=== PATIENT | female | born 1965 | race Caucasian/White ===

== ENCOUNTER 2016-12-22 03:54 | Inpatient (IN) ==
[2016-12-22] MEDS ORDERED: SOLU-MEDROL IV ONE (04:23)
[2016-12-22] MEDS ORDERED: DUONEB (A & A) INH ONE (04:23)
[2016-12-22 04:24] LABS: MANUAL DIFF NEEDED? NO
[2016-12-22 04:27] LABS: BASO% 0.2 % (0.0-0.8); EOS# 0.15 X1000 (0.0-0.7); EOS% 1.8 % (0.0-10.0); HEMATOCRIT 34.9 % (37.0-47.0); HEMOGLOBIN 11.2 g/dL (12.0-16.0); IMM GRAN# 0.02 X1000 (0.0-0.04); IMM GRAN% 0.2 % (0.0-0.5); LYMPH# 2.36 X1000 (1.2-3.4); LYMPH% 27.9 % (20.5-51.1); MCH 27.9 PG (27-31); MCHC 32.1 g/dL (33-37); MONO% 8.3 % (1.7-9.3); MPV 9.3 FL (7.4-10.4); NEUT% 61.6 % (42.2-75.2); PLT 258 X1000 (130-400); RBC 4.01 XMIL (4.2-5.4)
--- NOTE | 2016-12-22 04:31 | PROVIDER DOCUMENTATION ---
HPI-Critical Care - General Chief Complaint: Shortness of Breath Stated Complaint: sob Time Seen by Provider: 12/22/16 04:22 Patient arrived via EMS?: Yes Source: patient, EMS Unable to obtain history due to:: urgency Allergies/Adverse Reactions: Allergies Allergy/AdvReac Type Severity Reaction Status Date / Time levofloxacin [From Levaquin] Allergy Mild SHORTNESS Verified 11/24/16 20:58 OF BREATH ciprofloxacin AdvReac Mild VOMITING Verified 11/24/16 20:58 erythromycin base AdvReac Mild VOMITING Verified 11/24/16 20:58 [Erythromycin Base] azithromycin [From Zithromax] AdvReac ITCHING Verified 11/24/16 20:58 Home Medications: Home Medication List Medication Instructions Recorded Confirmed Last Taken Type ATORVAstatin [Lipitor] 10 mg PO DAILY #0 tablet 07/14/15 12/22/16 12/21/16 20: 00 Rx Albuterol 2.5MG/Ipratrop 0.5MG 3 ml INH RTQ4H #0 neb 07/14/15 12/22/16 12/22/16 00:00 Rx [Duoneb (A & A)] Citalopram [Celexa] 10 mg PO DAILY #0 tablet 07/14/15 12/22/16 12/21/16 07:00 Rx Albuterol Sulfate Inhaler 2 puff INH Q6H PRN PRN 08/29/15 12/22/16 12/22/16 02: 00 History [Ventolin Hfa] Fluticasone/Salmeterol [Advair 1 cap INH BID 08/29/15 12/22/16 12/21/16 07:00 History 500-50 Diskus] LISINOpril [Prinivil] 10 mg PO DAILY 08/29/15 12/22/16 12/21/16 07:00 History Pantoprazole [Protonix] 40 mg PO DAILY@0700 08/29/15 12/22/16 12/21/16 07:00 History Lactobacillus Rhamnosus GG 1 each PO BID #30 capsule 09/21/15 12/22/16 12/21/16 20:00 Rx [Culturelle] Metronidazole [Flagyl] 500 mg PO TID #21 tablet 11/24/16 12/22/16 Unknown Rx Prednisone [Prednisone] 10 mg PO DAILY 06/10/0512/22/16 12/19/16 07:00 History - History of Present Illness-Critical Care Nature of Presenting Problem: 51 year old copd presents complaining of productive cough of yellow phlegm, for the last 2 days Says she's had to bump up her oxygen over the last two days but it didn't help. Location of Pain/Injury: reports: none Quality of Pain: reports: none Onset/Duration: reports: 2 days ago Timing: reports: still present EMS Initial Findings:: decreased respirations, dyspneic Pre-hospital Treatment: Initiated BVM Associated Symptoms: reports: shortness of breath Loss of Consciousness: no loss of consciousness Improves Condition (Modifying Factors): improves with: nothing Nitro Today/Relief: no nitro taken today Aspirin Treatment Today: no aspirin today Prior Chest Pain/Cardiac Workup: reports: no prior chest pain Similar Symptoms Previously?: No Recently Seen Here or By Another Healthcare Provider: No - Cardiopulmonary Resuscitation Witnessed arrest?: No Bystander CPR?: No CPR initiated before doctor arrival?: No Treatment initiated prior to doctor arrival?: Initiated oxygen Review of Systems - Adult - REVIEW OF SYSTEMS - ADULT Constitutional: reports: no symptoms reported Eyes: reports: no symptoms reported Ears, Nose, Mouth & Throat: reports: no symptoms reported Cardiovascular: reports: no symptoms reported Respiratory: reports: chronic cough, cough, dyspnea on exertion, excessive sputum production, shortness of breath, wheezing Gastrointestinal: reports: no symptoms reported Genitourinary: reports: no symptoms reported Musculoskeletal: reports: no symptoms reported Integumentary: reports: no symptoms reported Neurological: reports: no symptoms reported Psychiatric: reports: no symptoms reported Endocrine: reports: no symptoms reported Hematologic/Lymphatic: reports: no symptoms reported Allergic/Immunologic: reports: no symptoms reported All Other Systems: Reviewed and Negative Past History - Adult - PAST MEDICAL HISTORY-ADULT Review of Records: reports: Old Records Reviewed, Nursing Assessment Review, Medications Reviewed, Social history reviewed & non-contributory. Major Childhood Illnesses: reports: denies history Cardiovascular: reports: HTN, other (pulmonary edema) Respiratory: reports: asthma, COPD Gastrointestinal: reports: cancer (prior to hysterectomy) Obstetrical/Gynecological: reports: denies history Genitourinary: reports: denies history Musculoskeletal: reports: denies history Neurological: reports: denies history Psychiatric: reports: anxiety, other (Panic attacks) Endocrine/Immune: reports: Diabetes Other Conditions: reports: denies history - PRIOR SURGERIES/PROCEDURES Surgical/Procedure History: reports: hysterectomy, - PRIOR HOSPITALIZATIONS Prior Hospitalizations: reports: none - IMMUNIZATION STATUS Childhood Immunizations: See Nurse Assessment Flu Vaccine: See Nurse Assessment - FAMILY HISTORY Family History: reviewed, not pertinent Physical Exam-General - PHYSICAL EXAM-ADULT Initial Vital Signs Reviewed: Yes - CONSTITUTIONAL General Appearance: appears well, mild distress - EYES Eyes: PERRL/EOMI, pink conjunctivae - HEAD, EARS, NOSE, MOUTH & THROAT HENMT: normocephalic/atraumatic, moist mucous membranes, normal ENT inspection - NECK Neck: non-tender, full range of motion - RESPIRATORY Respiratory: chest non-tender, lungs clear, normal breath sounds - CARDIOVASCULAR Cardiovascular: normal peripheral pulses, regular rate, rhythm, no edema - GASTROINTESTINAL (ABDOMEN) Abdominal Exam: normal bowel sounds, non tender, soft - LYMPHATIC Lymphatic: no adenopathy - MUSCULOSKELETAL Back Exam: normal inspection, no CVA tenderness, no vertebral tenderness Extremity: normal range of motion, non-tender, normal gait - SKIN Integumentary: normal color, normal turgor - NEUROLOGIC Neurologic: hide salter II-XII nml as tested, grossly normal, no motor/sensory deficits - PSYCHIATRIC Psych/Mental Status: normal mood/affect, normal thought content, normal thought process Progress - PLAN OF CARE/RESULTS Progress/Plan/Lab Results: Vital Signs - 8 hr 12/22/16 04:00 12/22/16 04:44 Temperature 98.3 F Pulse Rate 96 H 100 H Respiratory Rate 26 H 20 Blood Pressure 155/110 O2 Sat by Pulse Oximetry 100 100 Laboratory Results - last 24 hr 12/22/16 12/22/16 12/22/16 03:50 03:50 03:50 WBC 8.47 RBC 4.01 L Hgb 11.2 L Hct 34.9 L MCV 87.0 MCH 27.9 MCHC 32.1 L RDW Std Deviation 12.8 Plt Count 258 MPV 9.3 Immature Gran % (Auto) 0.2 Neut % (Auto) 61.6 Lymph % (Auto) 27.9 Humphreys % (Auto) 8.3 Eos % (Auto) 1.8 Baso % (Auto) 0.2 Immature Gran # (Auto) 0.02 Neut # (Auto) 5.22 Lymph # (Auto) 2.36 Humphreys # (Auto) 0.70 H Eos # (Auto) 0.15 Baso # (Auto) 0.02 PT 10.0 INR 0.96 PTT (Actin FS) 31.2 Specimen Type Sample Site pH pCO2 pO2 HCO3 Base Excess Oxyhemoglobin ABG O2 Sat (Calculated) ABG O2 Saturation ABG Carboxyhemoglobin ABG Methemoglobin Yves Test A-a O2 Difference Total Hemoglobin Lactate Liter Flow Blood Gas Modality FiO2 % Sodium 144 Potassium 3.9 Chloride 101 Carbon Dioxide 33 Anion Gap 10 BUN 9 Creatinine 0.5 Estimated GFR/1.73 m2 > 60 BUN/Creatinine Ratio 18 Glucose 97 Calculated Osmolality 285 Calcium 9.0 Magnesium 2.1 Total Bilirubin 0.20 AST 14 ALT 15 Alkaline Phosphatase 59 Creatine Kinase 61 Troponin T Total Protein 7.1 Albumin 4.2 Globulin 2.9 Albumin/Globulin Ratio 1.4 12/22/16 12/22/16 03:50 04:30 WBC RBC Hgb Hct MCV MCH MCHC RDW Std Deviation Plt Count MPV Immature Gran % (Auto) Neut % (Auto) Lymph % (Auto) Humphreys % (Auto) Eos % (Auto) Baso % (Auto) Immature Gran # (Auto) Neut # (Auto) Lymph # (Auto) Humphreys # (Auto) Eos # (Auto) Baso # (Auto) PT INR PTT (Actin FS) Specimen Type ARTERIAL Sample Site R RADIAL pH 7.37 pCO2 62 H* pO2 127 H HCO3 31.7 H Base Excess 8.7 H Oxyhemoglobin 96.9 ABG O2 Sat (Calculated) 15.2 ABG O2 Saturation 98.7 ABG Carboxyhemoglobin 1.00 ABG Methemoglobin 0.8 Yves Test YES A-a O2 Difference 52.0 Total Hemoglobin 11.0 L Lactate 0.70 Liter Flow 4.0 Blood Gas Modality CANNULA FiO2 % 36.0 Sodium Potassium Chloride Carbon Dioxide Anion Gap BUN Creatinine Estimated GFR/1.73 m2 BUN/Creatinine Ratio Glucose Calculated Osmolality Calcium Magnesium Total Bilirubin AST ALT Alkaline Phosphatase Creatine Kinase Troponin T < 0.010 Total Protein Albumin Globulin Albumin/Globulin Ratio Orders Category Date Time Status Cardiac Monitoring DIRECTED Care 12/22/16 03:55 Active Oxygen Therapy- ED Nursing DIRECTED Care 12/22/16 03:55 Active Saline Loc NOW Care 12/22/16 03:55 Active CHEST-2 VIEWS [RAD] Stat Exams 12/22/16 03:55 Taken ABG [RESP] Routine Lab 12/22/16 04:30 Completed CBC WITH ELECTRONIC DIFF [HEME] Stat Lab 12/22/16 03:50 Completed CK PROFILE [SP CHEM] Stat Lab 12/22/16 03:50 Completed COMPREHENSIVE METABOLIC PANEL [CHEM] Stat Lab 12/22/16 03:50 Completed MAGNESIUM [CHEM] Stat Lab 12/22/16 03:50 Completed PRO B-NATRIURETIC PEPTIDE Stat Lab 12/22/16 03:50 Received PROTIME WITH INR [COAG] Stat Lab 12/22/16 03:50 Completed PTT [COAG] Stat Lab 12/22/16 03:50 Completed TROPONIN T Stat Lab 12/22/16 03:50 Completed Albuterol 2.5MG/Ipratrop 0.5MG [Duoneb (A & A)] Med 12/22/16 04:23 Discontinued 3 ml INH NOW ONE Methylprednisolone Sod Succ [Solu-Medrol] Med 12/22/16 04:23 Discontinued 125 mg IV NOW ONE Aerosol Treatments Routine Oth 12/22/16 04:23 Completed Aerosol Treatments Stat Oth 12/22/16 04:23 Completed EKG [EKG] Stat Ther 12/22/16 03:54 Ordered Transfer/Admit Order [TRANSFER] Routine Transfer 12/22/16 04:46 Ordered Result Diagrams: 12/22/16 03:50 12/22/16 03:50 Departure - Departure Date of Disposition Decision: 12/22/16 Time of Disposition Decision: 04:31 DIAGNOSIS: COPD exacerbation, SOB (shortness of breath) Disposition: ADMITTED INPATIENT 09 Certified Medical Emergency: Emergent Condition: Stable - Critical Care Note This patient required my direct & personal management of CC.: No Attestation - Physician/ AMINA Attestation The physician spent face to face time with patient:: Yes Advanced Practice Provider documentation review:: The physician spent face to face time with this patient and agrees with all MLP documentation, treatment, and medical decision making by the MLP. See provider notes for further information.
[2016-12-22 04:36] LABS: INR 0.96; PTT 31.2 Seconds (22.0-36.0)
[2016-12-22 04:38] LABS: ALLEN TEST YES; BE 8.7 mmoll (-3.0-3.0); BLOOD TYPE ARTERIAL; DRAW SITE R RADIAL; METHB 0.8 % (0.0-1.5); O2(CT) 15.2 mL/dL (15.0-23.0); PO2(98.6) 127 mmHg (60-100); SAMPLE BLOOD; SAO2 98.7 % (95.0-100.0); pH(98.6) 7.37 (7.35-7.45)
[2016-12-22 04:40] LABS: MODALITY CANNULA
[2016-12-22 04:41] LABS: PCO2(98.6) 62 mmHg (35-45)
[2016-12-22 04:44] LABS: AGAP 10; ALBUMIN 4.2 g/dL (3.5-5.0); ALKALINE PHOSPHATASE 59 U/L (32-104); BUN 9 mg/dL (8-22); CHLORIDE 101 mmol/L (98-107); CK PROFILE 61 U/L (24-173); COSMO 285; GOT 14 U/L (10-30); GPT 15 U/L (10-36); MAGNESIUM 2.1 mg/dL (1.5-2.7); POTASSIUM 3.9 mmol/L (3.5-5.1); SODIUM 144 mmol/L (136-145); TCO2 33 mmol/L (25-35); TOTAL PROTEIN 7.1 g/dL (6.3-8.3)
[2016-12-22] MEDS: TYLENOL PO PRN ×2 (06:55→14:57)
[2016-12-22] MEDS ORDERED: ATIVAN ONE (07:07)
[2016-12-22] MEDS ORDERED: ATIVAN IV ONE (07:11)
[2016-12-22] MEDS: ZOFRAN IV PRN ×2 (08:18→17:00)
--- NOTE | 2016-12-22 08:19 | HISTORY AND PHYSICAL ---
PRIMARY CARE PROVIDERS: ELIZABETH Weir YARN BLEACHING MACHINE OPERATOR: Jackeline Ambrocio MD CHIEF COMPLAINT: Shortness of breath. HISTORY OF PRESENT ILLNESS: Ms. Márquez is a 51-year-old, female with a past medical history of COPD with frequent exacerbations. She currently is oxygen-dependent and wears nasal cannula 2 L at home. She also uses BiPAP at night. She reports that starting yesterday that she has become more short of breath. Patient reports that she frequently becomes short of breath upon exertion, though it is much worse at this time. She also states that she attempted to bump up her oxygen in hopes that this would help her feel better, though she continued to feel worse. The patient also reports a productive cough with yellow sputum. She denies any fever, body aches, or chills. She reports that she takes prednisone 10 mg daily, though has been out of this for approximately 4 days. She reports that her most recent admission was in [facility] in [place], for which she had a pretty severe COPD exacerbation and did end up having to be placed on a ventilator due to respiratory failure and hypercapnia. She states that she does have chronic hypercapnia, though her normal range he is in the high 50s. She denies any dizziness, chest pain, nausea, vomiting, or constipation. The patient does report some left upper quadrant pain that has been ongoing for approximately 3 months as well as diarrhea. She reports that her diarrhea of loose consistency and is light brown in color and has had a bloody mucus-like appearance at times. She reports that she can have up to 4-5 loose stools a day. She has history of irritable bowel syndrome and diverticulitis and did report a recent history of taking Flagyl for an intestinal infection. Upon evaluation in the ER, patient did appear to be slightly dyspneic. She was able to speak in full sentences. Though her lung sounds were diminished bilaterally in full brown. At this time, she is requiring increased oxygen dependent on 4 L nasal cannula at this time and is maintaining adequate oxygen saturations at 100%. Her chest x-ray does show findings consistent with COPD disease, though no other acute abnormalities are noted at this time, though we are awaiting official radiology over-read. Arterial blood gases showed a normal pH of 7.37, though pCO2 was elevated at 62. PO2 127, and HCO3 was 31.6. Patient was given a DuoNeb treatment as well as Solu- Medrol 125 mg IV in the ER and states that she does feel better since receiving these medications. At this time, we will admit the patient for further treatment and evaluation of her COPD exacerbation and diarrhea as well. REVIEW OF SYSTEMS: A 12-point review of systems was conducted with the patient and all were negative except for pertinent positives mentioned above in the HPI. PAST MEDICAL HISTORY: 1. COPD. 2. Hypertension. 3. Hyperlipidemia. 4. Gastroesophageal reflux disease. 5. Irritable bowel syndrome. 6. Diverticulitis. PAST SURGICAL HISTORY: 1. . 2. Hysterectomy secondary to patient reported findings of precancerous cells. SOCIAL HISTORY: Patient currently lives here in [place] with family, though within the last year, has recently moved back from around the [facility]. She is a former smoker. She has a history of smoking 1-1/2 packs per day for 15 years and quit approximately 1 year ago. She denies any alcohol or illicit drug use. FAMILY HISTORY: Positive for her mother having a history of glaucoma and gastroesophageal reflux disease. She reports that her father has no known medical problems. She also has 2 brothers and 2 sisters who are healthy as well. ALLERGIES: Patient reports allergies to Levaquin, Levsin, ciprofloxacin, erythromycin and Zithromax. HOME MEDICATIONS: 1. lorazepam 0.5 mg p.o. b.i.d. 2. Vitamin B12 1000 mcg p.o. daily. 3. Vitamin D3 1000 units p.o. daily. 4. Mucinex extended release 600 mg p.o. b.i.d. 5. Daliresp 500 mcg p.o. daily. 6. Zofran ODT mg p.o. p.r.n. as needed for nausea. 7. Trazodone 50 mg p.o. at bedtime. 8. Symbicort 160-4.5 mcg inhaler 1 puff inhaled twice a day. 9. Prednisone 10 mg p.o. daily. 10. Protonix 40 mg p.o. daily. 11. Culturelle 1 capsule p.o. b.i.d. 12. Advair 500-50 Diskus 1 capsule inhaled b.i.d. 13. Celexa 10 mg p.o. daily. 14. Ventolin HFA inhaler 2 puffs inhaled q.4 hours p.r.n. 15. DuoNeb albuterol/Atrovent treatments 3 mL inhaled q.4 hours. 16. Lipitor 10 mg p.o. daily. DIAGNOSTIC DATA/LABORATORY RESULTS: White blood cell count 8.47, hemoglobin 11.2, hematocrit 34.9, platelet count 258,000. PTT 10, INR 0.96, PTT 31.2. Sodium 144, potassium 3.9, chloride 101, bicarb 33, BUN 9, creatinine 0.5, glucose 97, calcium 9, magnesium 2.1. Liver function tests within normal limits. CK 61, troponin less than 0.01. Arterial blood gases were obtained on nasal cannula at 4 L. PH was 7.37, pCO2 62, PO2 127, HCO3 was 31.7 with a base excess of 8.7, and O2 saturation of 98.7. EKGs shows normal sinus rhythm at a rate of 100 with a QTc of 466. Chest x-ray showed findings of COPD disease though no other acute abnormalities noted at this time. We are awaiting official radiology over read. PHYSICAL EXAMINATION: VITAL SIGNS: Temperature 98.3 degrees, heart rate 81, respirations 25, blood pressure 132/80, oxygen saturation 100% nasal cannula at 4 L. GENERAL: Ms. Márquez is a pleasant 51-year-old, female who is resting comfortably in the ER stretcher. She was in no acute distress. She was awake, alert and able answer all questions appropriately. HEENT: Head is atraumatic, normocephalic. Pupils are equal, round, reactive to light, were 3 mm bilaterally and brisk. The subconjunctivae are pink. Oral mucosa is moist. Oropharynx is clear. NECK: Supple. Trachea midline. The patient does report approximately a half- dollar sized area noted to her posterior left neck that is slightly swollen. She reports that this came up a month or 2 ago. It is nontender upon palpation. She has no other lymphadenopathy noted. CARDIOVASCULAR: Patient has normal S1, S2. No murmurs, gallops, or rubs appreciated with a regular rate and rhythm. PULMONARY: Patient has symmetrical chest expansion bilaterally. Lung sounds in bilateral lung brown were diminished. ABDOMEN: Soft, nondistended. The patient did report some tenderness in the left upper quadrant upon palpation though no rebound tenderness noted. Bowel sounds were present in all 4 quadrants and were slightly hypoactive. EXTREMITIES: No cyanosis, clubbing, or edema noted. Pulse, motor and sensory were intact in all extremities as well. Pedal pulses were 3+ bilaterally. Capillary refill less than 3. INTEGUMENTARY: The patient's skin is pink, warm, dry and intact. No lesions or sores noted. NEUROLOGICAL: Patient is alert, oriented x4. Cranial nerves 2-12 are grossly intact. ASSESSMENT AND PLAN: 1. Chronic obstructive pulmonary disease exacerbation. For this, we will place the patient on q.4 hours scheduled DuoNeb treatments as well as q.2 hour p.r.n. DuoNeb treatments as needed. We will also give her Solu-Medrol 80 mg IV q.8 hours. We will continue with aggressive pulmonary toilet with turn, cough and deep breathe as well as incentive spirometry q.4 hours. We will also continue her BiPAP daily at night and will continue to monitor her respiratory status closely. 2. Hyperlipidemia. We will continue her Lipitor. 3. Hypertension. The patient states that currently, she does not take any medications for high blood pressure, though does have a previous history of this. We will continue to monitor her blood pressure and will treat if necessary. 4. Anxiety. Will continue the patient's Ativan twice a day p.r.n. as needed. 5. Gastroesophageal reflux disease. For this, as well as gastrointestinal prophylaxis, we will place the patient on Protonix 40 mg IV q.24 hours. 6. Deep vein thrombosis prophylaxis. For this, the patient we have ordered for sequential compression devices to be placed. 7. Diarrhea. We have placed stool studies as well as a CRP and a vitamin D 25 hydroxy given her history of irritable bowel syndrome and diverticulitis. The patient does have some reported left upper quadrant pain. We have ordered an amylase and lipase as well and are awaiting those results. The patient will be placed on the medical floor telemetry. She will have vital signs q.4 hours. We will do intake and output q.8 hours. She will be on a regular diet. Further orders and recommendations pending hospital course, diagnostic studies and physician evaluation. Dictated by ELIZABETH Gomez for William Looney MD cc: William Looney MD INTERFAITH MEDICAL CENTERTheresa
[2016-12-22] MEDS: MOTRIN PO PRN ×3 (08:30→17:00)
[2016-12-22] MEDS: PROTONIX IV SCH (08:31)
[2016-12-22] MEDS ORDERED: LEVAQUIN 750 MG/D5W 750 MG/150 ML IVPB IV SCH (09:00)
--- NOTE | 2016-12-22 09:13 | Diag Imaging Result Doc PS360 ---
EXAM: CHEST-2 VIEWS INDICATION: CP TECHNIQUE: 2 views COMPARISON: 11/24/2016 FINDINGS: The lungs appear somewhat hyperinflated, stable. The lungs are grossly clear, otherwise. There is no discrete pleural fluid collection or pneumothorax. The cardiomediastinal silhouette and central vasculature are grossly unremarkable. IMPRESSION: Suggestion of COPD. No definite acute pathology by plain radiograph. Electronically signed by Arnold Claros 12/22/2016 9:10 AM
[2016-12-22] MEDS: DUONEB (A & A) INH SCH ×5 (09:52→22:42)
--- NOTE | 2016-12-22 11:27 | PROGRESS NOTE ---
DATE: 12/22/2016 SUBJECTIVE: The patient is feeling better but complained of having headache. Shortness of breath has been somewhat improved. No fever. No chills. No nausea, vomiting or diarrhea. No cough this morning. OBJECTIVE: Vital signs: Blood pressure is 153/82, pulse 97, respirations 16, temperature 97.8, saturation 98% on 4 L. General appearance: A thin white female in no acute distress. HEENT: Anicteric sclerae. Clear conjunctivae. Neck: Supple. No JVD. No bruit. Cardiovascular: S1, S2 normal. Regular rate and rhythm. No murmurs, rubs or gallops. Pulmonary: Decreased air movement bilaterally with expiratory wheezes. GI: Soft, nontender and nondistended. Normoactive bowel sounds. Musculoskeletal: No cyanosis, clubbing or edema. DIAGNOSTIC DATA: WBC is 8.47, hemoglobin 11.2, hematocrit 34.9, platelets 258. Chemistry shows sodium 144, potassium 3.9, chloride 101, bicarb 23, BUN is 9, creatinine 0.5, glucose 97, calcium 9.0. Liver function tests are within normal limits. ASSESSMENT AND PLAN: This is a 51-year-old white female with COPD, admitted to the hospital for acute shortness of breath and productive cough. 1. Acute chronic obstructive pulmonary disease exacerbation. We sent sputum and blood culture. We started the patient on Rocephin. Keep her on her IV steroids and nebulizer treatment as is. 2. Headache. History of migraine. The patient takes ibuprofen, and we will put the patient on ibuprofen and Tylenol alternating. 3. Gastroesophageal reflux disease. Continue Protonix. 4. Anxiety disorder. We will continue p.r.n. Ativan. 5. Hyperlipidemia. We will continue Lipitor. 6. Code status. The patient is full code. 7. DVT prophylaxis. We will put the patient on Lovenox.
[2016-12-22] MEDS: ROCEPHIN 1 GM/NS 1 GM/50 ML IVPB IV SCH (12:03)
[2016-12-22] MEDS: DALIRESP PO SCH (12:04)
[2016-12-22] MEDS: VITAMIN D PO SCH (12:04)
[2016-12-22] MEDS: CELEXA PO SCH (12:04)
[2016-12-22] MEDS: VITAMIN B-12 PO SCH (12:04)
[2016-12-22] MEDS: LOVENOX SUBQ SCH (12:04)
[2016-12-22] MEDS: CULTURELLE PO SCH ×2 (12:04→21:19)
[2016-12-22] MEDS: SOLU-MEDROL IV SCH ×2 (13:53→21:19)
[2016-12-22] MEDS: ATIVAN PO PRN ×2 (14:13→21:26)
[2016-12-22] MEDS ORDERED: ULTRAM PO ONE (20:55)
[2016-12-22] MEDS: LIPITOR PO SCH (21:19)
[2016-12-22] MEDS: DESYREL PO SCH (21:19)
[2016-12-23] MEDS: DUONEB (A & A) INH SCH ×6 (03:49→23:18)
[2016-12-23] MEDS: SOLU-MEDROL IV SCH ×3 (05:25→20:38)
[2016-12-23] MEDS: SODIUM CHLORIDE 0.9% INJ SCH (06:46)
[2016-12-23] MEDS: PROTONIX IV SCH (06:46)
[2016-12-23 06:55] LABS: HEMATOCRIT 34.4 % (37.0-47.0); HEMOGLOBIN 11.4 g/dL (12.0-16.0); LYMPH# 0.74 X1000 (1.2-3.4); LYMPH% 10.1 % (20.5-51.1); MANUAL DIFF NEEDED? YES; MCH 28.2 PG (27-31); MCHC 33.1 g/dL (33-37); MCV 85.1 FL (81-99); MONO# 0.29 X1000 (0.11-0.59); MONO% 3.9 % (1.7-9.3); MPV 8.9 FL (7.4-10.4); PLT 242 X1000 (130-400); RBC 4.04 XMIL (4.2-5.4)
[2016-12-23 07:13] LABS: AGAP 11; BUN 11 mg/dL (8-22); CALCIUM 9.2 mg/dL (8.8-10.2); CHLORIDE 99 mmol/L (98-107); COSMO 281; POTASSIUM 4.4 mmol/L (3.5-5.1); SODIUM 140 mmol/L (136-145); TCO2 30 mmol/L (25-35)
[2016-12-23 07:38] LABS: BANDS 2 % (0-1); LYMPHS 10 % (21-51); MONO 2 % (1-9)
[2016-12-23 08:53] LABS: ALLEN TEST YES; BE 5.4 mmoll (-3.0-3.0); BLOOD TYPE ARTERIAL; DRAW SITE R RADIAL; METHB 1.2 % (0.0-1.5); O2(CT) 15.2 mL/dL (15.0-23.0); PO2(98.6) 73 mmHg (60-100); SAMPLE BLOOD; SAO2 97.1 % (95.0-100.0); THB 11.3 g/dL (11.5-17.4); pH(98.6) 7.39 (7.35-7.45)
[2016-12-23 08:55] LABS: MODALITY CANNULA; PCO2(98.6) 52 mmHg (35-45)
[2016-12-23] MEDS: MOTRIN PO PRN (09:47)
[2016-12-23] MEDS: CULTURELLE PO SCH ×2 (09:47→20:38)
[2016-12-23] MEDS: VITAMIN D PO SCH (09:47)
[2016-12-23] MEDS: DALIRESP PO SCH (09:47)
[2016-12-23] MEDS: FLONASE NAS PRN (09:47)
[2016-12-23] MEDS: CELEXA PO SCH (09:47)
[2016-12-23] MEDS: ROCEPHIN 1 GM/NS 1 GM/50 ML IVPB IV SCH (09:48)
[2016-12-23] MEDS: VITAMIN B-12 PO SCH (09:48)
[2016-12-23] MEDS: LOVENOX SUBQ SCH (13:32)
[2016-12-23] MEDS: ULTRAM PO PRN ×2 (14:38→20:38)
[2016-12-23] MEDS: ZOFRAN IV PRN (14:38)
--- NOTE | 2016-12-23 15:42 | PROGRESS NOTE ---
DATE: 12/23/2016 SUBJECTIVE: The patient is feeling better. She asked when she can go home. Still having significant shortness of breath when she is talking. OBJECTIVE: Vital signs: Blood pressure 136/84, pulse of 97, respirations 20, temperature 98.6 degrees, saturation 100% on 3 L nasal cannula. The patient on 2 at home. General appearance: Thin, white female with a barrel chest and in mild distress. HEENT: Anicteric sclerae. Clear conjunctivae. Neck: Supple. No JVD. No bruit. Cardiovascular: S1, S2. Normal rate and rhythm. No murmur, rubs, or gallops. Pulmonary: She has decreased air movement bilaterally. She was wheezing expiratorily. GI: Soft, nontender, nondistended. Normoactive bowel sounds. Musculoskeletal: No clubbing, cyanosis, or edema. LABORATORY: White count 7.36, hemoglobin 11.4, hematocrit of 34.4, platelets 242,000,. Chemistry: Sodium 140, potassium 4.4, chloride 99, bicarb 30, BUN 11, creatinine 0.5, glucose of 140. ASSESSMENT AND PLAN: This is a 51-year-old, white female admitted to the hospital for acute chronic obstructive pulmonary disease exacerbation. 1. Acute chronic obstructive pulmonary disease exacerbation. We will continue ceftriaxone, nebulizer treatment, IV steroids, oxygen. We will try to titrate down to her normal dose. The patient quit smoking about a year ago. 2. Hyperlipidemia. Continue Lipitor. 3. Depression. Continue Celexa. 4. Deep vein thrombosis prophylaxis. The patient on Lovenox. 5. Code status. The patient is a full code. 6. Disposition: The patient can go home once her breathing function is improved and back on her home oxygen 2 L/minute.
[2016-12-23] MEDS: LIPITOR PO SCH (20:38)
[2016-12-23] MEDS: DESYREL PO SCH (20:38)
[2016-12-23] MEDS: ATIVAN PO PRN (20:43)
[2016-12-24] MEDS: DUONEB (A & A) INH SCH ×6 (03:19→22:49)
--- NOTE | 2016-12-24 07:14 | EKG Report ---
Test Performed on : 12/22/2016 03:52:33 AM Test Reason : sob Blood Pressure : / mmHG Vent. Rate : 100 BPM Atrial Rate : 100 BPM P-R Int : 118 ms QRS Dur : 072 ms QT Int : 362 ms P-R-T Axes : 094 084 084 degrees QTc Int : 466 ms Normal sinus rhythm. Cannot rule out Inferior infarct , age undetermined Abnormal ECG When compared with ECG of 29-AUG-2015 07:47, No significant change was found Unconfirmed Result
[2016-12-24] MEDS: PROTONIX IV SCH (08:36)
[2016-12-24] MEDS: SODIUM CHLORIDE 0.9% INJ SCH (08:36)
[2016-12-24] MEDS: CELEXA PO SCH (08:36)
[2016-12-24] MEDS: FLONASE NAS PRN (08:37)
[2016-12-24] MEDS: VITAMIN B-12 PO SCH (08:37)
[2016-12-24] MEDS: DALIRESP PO SCH (08:37)
[2016-12-24] MEDS: VITAMIN D PO SCH (08:37)
[2016-12-24] MEDS: CULTURELLE PO SCH ×2 (08:37→20:34)
[2016-12-24] MEDS: ATIVAN PO PRN ×2 (08:42→20:34)
[2016-12-24] MEDS: ROCEPHIN 1 GM/NS 1 GM/50 ML IVPB IV SCH (08:45)
[2016-12-24] MEDS: SOLU-MEDROL IV SCH ×3 (08:45→20:34)
[2016-12-24] MEDS: LOVENOX SUBQ SCH (11:46)
--- NOTE | 2016-12-24 12:31 | PROGRESS NOTE ---
DATE: 12/24/2016 SUBJECTIVE: Today, Ms. Márquez referred to be doing pretty much the same, having difficulty breathing. She was actually on her home BiPAP. OBJECTIVE: Vital Signs: Blood pressure is 143/84, respiration is 19, pulse is 85, temperature 97.8 degrees. General: Ms. Márquez in is a 51-year-old female. She is in bed, under BiPAP, synchronized well with it, not seemingly distressed. HEENT: Mucosa is pink and moist. Anicteric. Acyanotic. Neck is supple. Chest: Air entry is bilaterally reduced. The shape of the chest looks barrel shaped. There is prolonged phase of expiration. No crepitations. No rhonchi. Cardiovascular: Regular rate and rhythm. Abdomen is soft, nontender. Extremities: No pedal edema. 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 LABORATORY DATA: WBC is 7.36, hemoglobin is 11.4, platelet count of 242,000. Chemistries reviewed and completely unremarkable. Vitamin D level is 16.7. Review of a chest x-ray was done on 12/22/2016 which shows COPD. No definite acute pathology. ABG which was done on presentation did show a pCO2 of 62, but the patient is a chronic CO2 retainer. ASSESSMENT: 1. [id number] hypercarbic respiratory failure. 2. Chronic obstructive pulmonary disease exacerbation. 3. Vitamin D deficiency. 4. Dyslipidemia. 5. Situational depression. Patient is on Celexa. So, in general, I think Ms. Márquez continues to be stable. She is currently on albuterol and ipratropium nebs, ceftriaxone, calciferol and methylprednisolone. For now, I am going to discontinue her ibuprofen; higher dose of 800 since that can also potentially worsen the respiratory symptoms. Will continue with her inhalers, and I will start her back on her Advair and Symbicort. Wound encourage the patient to use incentive spirometer. cc: MD HANNAH London
[2016-12-24] MEDS: DUONEB (A & A) INH PRN (13:29)
[2016-12-24] MEDS: ULTRAM PO PRN (17:45)
[2016-12-24] MEDS: ADVAIR 500/50 DISKUS INH SCH (20:00)
[2016-12-24] MEDS: SYMBICORT 160/4.5 MICROGM INHALER INH SCH (20:00)
[2016-12-24] MEDS: LIPITOR PO SCH (20:34)
[2016-12-24] MEDS: DESYREL PO SCH (20:34)
[2016-12-25] MEDS: DUONEB (A & A) INH SCH ×6 (03:54→23:00)
[2016-12-25] MEDS: SOLU-MEDROL IV SCH ×3 (05:07→20:14)
[2016-12-25] MEDS: ADVAIR 500/50 DISKUS INH SCH ×2 (07:32→21:40)
[2016-12-25] MEDS: SYMBICORT 160/4.5 MICROGM INHALER INH SCH ×2 (07:32→19:05)
[2016-12-25] MEDS: PROTONIX IV SCH (08:08)
[2016-12-25] MEDS: CULTURELLE PO SCH ×2 (08:08→20:14)
[2016-12-25] MEDS: SODIUM CHLORIDE 0.9% INJ SCH (08:08)
[2016-12-25] MEDS: CELEXA PO SCH (08:08)
[2016-12-25] MEDS: VITAMIN D PO SCH (08:09)
[2016-12-25] MEDS: VITAMIN B-12 PO SCH (08:09)
[2016-12-25] MEDS: DALIRESP PO SCH (08:11)
[2016-12-25] MEDS: ATIVAN PO PRN ×2 (08:11→20:14)
[2016-12-25] MEDS: ROCEPHIN 1 GM/NS 1 GM/50 ML IVPB IV SCH (09:22)
[2016-12-25] MEDS ORDERED: IMODIUM PO ONE ×2 (10:41→15:22)
[2016-12-25] MEDS: LOVENOX SUBQ SCH (11:23)
--- NOTE | 2016-12-25 11:50 | PROGRESS NOTE ---
DATE: 12/25/2016 SUBJECTIVE: Today Ms. Márquez refers to be doing fine. Still has residual shortness of breath. OBJECTIVE: Vital signs: Blood pressure is 128/72, pulse of 75, respirations 19 , temperature 97.5 degrees. General: Ms. Krishnan is a 51-year-old female. She is in bed. She is under her BiPAP. Mildly distressed. HEENT: Mucosa is pink and moist. Anicteric. Acyanotic. Neck: Supple. Chest: Air entry is bilaterally reduced. Almost silent lungs. Did not appreciate any crepitations or rhonchi. There is a prolonged expiratory phase of respiration. Cardiovascular: Regular rate and rhythm. Abdomen: Soft. Extremities: No pedal edema. 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 Chest wall: Has a bilateral shape. LABORATORY DATA: None for today. ASSESSMENT: 1. Acute on chronic hypercarbic respiratory failure. 2. Chronic obstructive pulmonary disease exacerbation. 3. Vitamin D deficiency. 4. Dyslipidemia. 5. Situational depression. 6. Diarrhea, etiology unclear. Probably due to antibiotic side effects. The patient also has a history of IBS so this could have just been a flare of the IBS from the antibiotics. We will do a C. difficile just to make sure it is not infectious because patient has been on antibiotics. PLAN: We are going to continue with the current antibiotics, the bronchodilator therapy, and the steroids, and hopefully get the patient ready by tomorrow. cc: Horacio Middleton MD Review C. diff negative Add loperamide 2mg PRN for Diarrhea. MTDD
[2016-12-25] MEDS: DUONEB (A & A) INH PRN (14:11)
--- NOTE | 2016-12-25 14:36 | Diag Imaging Result Doc PS360 ---
EXAM: ABDOMEN FLAT/UPRIGHT - 12/25/2016 HISTORY: diarrhea TECHNIQUE: Supine and upright abdomen COMPARISON: Supine abdomen of 02/20/2015 FINDINGS: There is gas visible throughout the colon, which does not appear substantially distended. There is a small amount of small bowel gas visible, primarily at the left abdomen. There is no substantial gaseous small bowel distention identified. There is no discrete free air identified. IMPRESSION: Nonspecific bowel gas pattern. Electronically signed by Perry Rob 12/25/2016 2:34 PM
[2016-12-25] MEDS: DESYREL PO SCH (20:14)
[2016-12-25] MEDS: IMODIUM PO PRN (20:14)
[2016-12-25] MEDS: LIPITOR PO SCH (20:14)
[2016-12-26] MEDS: DUONEB (A & A) INH SCH ×4 (03:25→16:47)
[2016-12-26] MEDS: SOLU-MEDROL IV SCH ×2 (04:36→12:02)
[2016-12-26] MEDS: SYMBICORT 160/4.5 MICROGM INHALER INH SCH (07:18)
[2016-12-26] MEDS: VITAMIN D PO SCH (08:22)
[2016-12-26] MEDS: SODIUM CHLORIDE 0.9% INJ SCH (08:22)
[2016-12-26] MEDS: VITAMIN B-12 PO SCH (08:22)
[2016-12-26] MEDS: PROTONIX IV SCH (08:22)
[2016-12-26] MEDS: CELEXA PO SCH (08:22)
[2016-12-26] MEDS: DALIRESP PO SCH (08:23)
[2016-12-26] MEDS: CULTURELLE PO SCH (08:23)
[2016-12-26] MEDS: IMODIUM PO PRN (08:29)
[2016-12-26] MEDS: ATIVAN PO PRN (08:29)
[2016-12-26] MEDS: ROCEPHIN 1 GM/NS 1 GM/50 ML IVPB IV SCH (08:46)
[2016-12-26] MEDS: ADVAIR 500/50 DISKUS INH SCH (11:18)
[2016-12-26] MEDS: LOVENOX SUBQ SCH (12:02)
--- NOTE | 2016-12-26 13:59 | DISCHARGE SUMMARY ---
ADMISSION DATE: 12/22/2016 DISCHARGE DATE: 12/26/2016 CONSULTATIONS: None. PERTINENT PROCEDURES: Abdomen x-ray showed nonspecific bowel gas pattern. DISCHARGE DIAGNOSES: 1. Acute on chronic hypercapnic respiratory failure. Improved. 2. Chronic obstructive pulmonary disease exacerbation. Improved. 3. Vitamin D deficiency. Continue supplementation. 4. Dyslipidemia. Continue statin. 5. Situational depression. Continue home medications. 6. Diarrhea. Etiology unclear. Possibly secondary to antibiotic side effects, as well as history of irritable bowel syndrome. 7. Clostridium difficile was negative. Improved. HOSPITAL COURSE: Ms. Márquez is a 51-year-old female, past medical history of COPD with frequent exacerbations, oxygen dependent with 2 L nasal cannula at home as well as BiPAP at night. The patient came to the ED because she became short of breath. She also reports shortness of breath with exertion though this admission it was much worse. She did try to bump up her oxygen at home in hopes that she would feel better but she continued to feel worse. She reported a productive cough with yellow sputum. She has also been out of her prednisone that she takes daily for 4 days. Her most recent admission was to [facility] in [place] for which she had a pretty severe COPD exacerbation and then not being placed on a ventilator secondary to respiratory failure and hypercapnia. She does know that she does have chronic hypercapnia and her normal range is in the high 50s. The patient reported some left upper quadrant pain that was ongoing for 3 months as well as diarrhea consistent with loose stools that were light brown in color, as well as a bloody mucus-like appearance at times. She had up to 4-5 loose stools per day. She also reports a history of irritable bowel syndrome and diverticulitis and a recent history uptake in [facility] for an intestinal infection. In the ED she was found to be slightly dyspneic. LABORATORIES: Chest x-ray showed finding consistent with COPD. Her CO2 was elevated at 62 on the ABG. She was given DuoNeb and IV Solu-Medrol in the ED. The patient was admitted for COPD exacerbation as well as diarrhea. Stool studies were checked for C diff. They were negative. The patient was continued on IV steroids, bronchodilators, as well as some Imodium, as well as antibiotics and supplemental O2 during the day and BiPAP at night. Clinically, the patient has improved. She is appropriate for discharge home today. VITAL SIGNS: Temperature is 98.8 degrees, heart rate 72, respirations 18, blood pressure is 126/91, O2 is 100% on 4 L. DISCHARGE DIET: Healthy heart. DISCHARGE MEDICATIONS: 1. Albuterol inhaler 3 mL inhaled q.4 hours 2. Ventolin inhaler 2 puffs inhaled q.6 hours p.r.n. 3. Augmentin 875 mg p.o. b.i.d. 4. Lipitor 10 mg p.o. daily. 5. Symbicort 10.2 g 1 puff inhaled b.i.d. 6. Vitamin D3, 1000 units p.o. daily. 7. Celexa 10 mg p.o. daily. 8. Vitamin B12 1000 mcg p.o. daily. 9. Advair Diskus 1 cap inhaled b.i.d. 10. Mucinex 600 mg p.o. b.i.d. 11. Levbid b.i.d. 0.3 mg p.o. b.i.d. 12. Culturelle 1 each p.o. b.i.d. 13. Imodium 2 mg p.o. b.i.d. 14. Lorazepam 0.5 mg p.o. b.i.d. 15. Zofran ODT 4 mg p.o. p.r.n. as ordered. 16. Protonix 40 mg p.o. daily. 17. Prednisone 40 mg p.o. daily. 18. 100 mcg p.o. daily. 19. Desyrel 50 mg p.o. at bedtime. FOLLOWUP: The patient is being discharged home with [facility]. She will need to follow up with [facility] in 1 week. The patient is to continue her full course of antibiotics as well as continue on her steroids. She can return to the ED for any worsening of symptoms. DISCHARGE TIME: 30 minutes. Dictated by ELIZABETH Winter for Horacio Middleton MD cc: Horacio Middleton MD
[2016-12-26 14:16] VITALS: BP 115/73
[2016-12-26] MEDS ORDERED: BENTYL PO SCH (16:00)
[2016-12-26] MEDS ORDERED: PATIENT'S OWN MED PO SCH (21:00)
[2016-12-26] MEDS ORDERED: AUGMENTIN PO SCH (21:00)
[2016-12-26] MEDS ORDERED: LEVBID PO SCH (21:00)
[2016-12-27] MEDS ORDERED: PREDNISONE PO SCH (09:00)
== END 2016-12-26 18:37 | disposition home health service (06) ==
LOC: ED 03:54 → 3N 06:50 → SUATTDRO 06:50
PROVIDERS: ATTEND Internal Medicine

== ENCOUNTER 2016-12-30 01:43 | Inpatient (IN) ==
[2016-12-30] MEDS ORDERED: PULMICORT INH ONE (02:13)
[2016-12-30] MEDS ORDERED: ALBUTEROL NEB INH ONE (02:13)
[2016-12-30] MEDS ORDERED: DUONEB (A & A) INH ONE (02:13)
[2016-12-30] MEDS ORDERED: SOLU-MEDROL IV ONE (02:13)
[2016-12-30 02:18] LABS: ALLEN TEST YES; BE 4.8 mmoll (-3.0-3.0); BLOOD TYPE ARTERIAL; DRAW SITE R RADIAL; METHB 0.8 % (0.0-1.5); O2(CT) 16.4 mL/dL (15.0-23.0); PO2(98.6) 207 mmHg (60-100); SAMPLE BLOOD; SAO2 99.6 % (95.0-100.0); THB 11.6 g/dL (11.5-17.4); pH(98.6) 7.21 (7.35-7.45)
[2016-12-30 02:20] LABS: MODALITY NRB; PCO2(98.6) 88 mmHg (35-45)
[2016-12-30 02:42] LABS: BASO% 0.3 % (0.0-0.8); EOS# 0.31 X1000 (0.0-0.7); EOS% 1.3 % (0.0-10.0); HEMATOCRIT 37.9 % (37.0-47.0); IMM GRAN# 0.25 X1000 (0.0-0.04); IMM GRAN% 1.1 % (0.0-0.5); LYMPH# 7.46 X1000 (1.2-3.4); LYMPH% 31.4 % (20.5-51.1); MANUAL DIFF NEEDED? YES; MCHC 31.7 g/dL (33-37); MCV 88.6 FL (81-99); MONO# 1.67 X1000 (0.11-0.59); MPV 8.8 FL (7.4-10.4); NEUT% 58.9 % (42.2-75.2); PLT 381 X1000 (130-400); RBC 4.28 XMIL (4.2-5.4)
[2016-12-30 02:58] LABS: AGAP 11; ALBUMIN 3.9 g/dL (3.5-5.0); ALKALINE PHOSPHATASE 55 U/L (32-104); BUN 15 mg/dL (8-22); CHLORIDE 97 mmol/L (98-107); COSMO 285; GOT 30 U/L (10-30); GPT 38 U/L (10-36); POTASSIUM 3.8 mmol/L (3.5-5.1); SODIUM 139 mmol/L (136-145); TCO2 31 mmol/L (25-35); TOTAL BILIRUBIN 0.26 mg/dL (0.20-1.00); TOTAL PROTEIN 6.4 g/dL (6.3-8.3)
[2016-12-30 03:11] LABS: EOS 2 % (1-10); LYMPHS 44 % (21-51); MONO 6 % (1-9)
[2016-12-30] MEDS ORDERED: NS 1,000 ML ONE (03:19)
[2016-12-30] MEDS ORDERED: ZOSYN 3.375 GM/NS 3.375 GM/50 ML IVPB IV ONE (03:23)
--- NOTE | 2016-12-30 03:26 | PROVIDER DOCUMENTATION ---
This chart was entered by Moy Levin Scribe, acting as scribe for Dev Nath MD. HPI-Respiratory General - General Chief Complaint: Shortness of Breath Stated Complaint: sob Time Seen by Provider: 12/30/16 02:00 Source: patient Allergies/Adverse Reactions: Patient Allergies Allergy/AdvReac Type Severity Reaction Status Date / Time levofloxacin [From Levaquin] Allergy Mild SHORTNESS Verified 12/30/16 01:54 OF BREATH hyoscyamine [From Levsin] Allergy Unknown Verified 12/30/16 01:54 ciprofloxacin AdvReac Mild VOMITING Verified 12/30/16 01:54 erythromycin base AdvReac Mild VOMITING Verified 12/30/16 01:54 [Erythromycin Base] azithromycin [From Zithromax] AdvReac ITCHING Verified 12/30/16 01:54 Home Medications: Home Medication List Medication Instructions Recorded Confirmed Last Taken Type ATORVAstatin [Lipitor] 10 mg PO DAILY #0 tablet 07/14/15 12/30/16 12/29/16 07: 00 Rx Albuterol 2.5MG/Ipratrop 0.5MG 3 ml INH RTQ4H #0 neb 07/14/15 12/30/16 12/22/16 00:00 Rx [Duoneb (A & A)] Citalopram [Celexa] 10 mg PO DAILY #0 tablet 07/14/15 12/30/16 12/29/16 07:00 Rx Albuterol Sulfate Inhaler 2 puff INH Q6H PRN PRN 08/29/15 12/30/16 12/22/16 02: 00 History [Ventolin Hfa] Fluticasone/Salmeterol [Advair 1 cap INH BID 08/29/15 12/30/16 12/21/16 07:00 History 500-50 Diskus] Pantoprazole [Protonix] 40 mg PO DAILY@0700 08/29/15 12/30/16 12/29/16 07:00 History Lactobacillus Rhamnosus GG 1 each PO BID #30 capsule 09/21/15 12/30/16 12/21/16 20:00 Rx [Culturelle] Budesonide/Formoterol Fumarate 1 puff IH BID 12/22/16 12/30/16 12/29/16 20:00 History [Symbicort 160-4.5 Mcg Inhaler] Cholecalciferol (Vitamin D3) 1,000 unit PO DAILY 12/22/16 12/30/16 12/21/16 07: 00 History [Vitamin D3] Cyanocobalamin (Vitamin B-12) 1,000 mcg PO DAILY 12/22/16 12/30/16 12/21/16 07: 00 History [Vitamin B12] Guaifenesin E.r. [Mucinex] 600 mg PO BID 12/22/16 12/30/16 12/21/16 20:00 History Lorazepam [Lorazepam] 0.5 mg PO BID 12/22/16 12/30/16 12/29/16 20:00 History Ondansetron [Zofran Odt] 4 mg PO ORDERED PRN 12/22/16 12/22/16 Unknown History Roflumilast [Daliresp] 500 microgm PO DAILY 12/22/16 12/30/16 12/29/16 07:00 History Amoxicillin/Pot Clavulanate 875 mg PO BID #10 tablet 12/26/16 12/30/16 Unknown Rx [Augmentin] Dicyclomine [Bentyl] 10 mg PO TID AC #30 capsule 12/26/16 12/30/16 12/29/16 19: 00 Rx Loperamide [Imodium] 2 mg PO BID #30 capsule 12/26/16 12/30/16 Unknown Rx Prednisone 40 mg PO DAILY #5 tablet 12/26/16 12/30/16 12/29/16 07:00 Rx Benzonatate 200 mg PO TID 12/30/16 12/30/16 12/29/16 20:00 History Diphenhydramine HCl [Allergy 25 mg PO DAILY 12/30/16 12/30/16 12/29/16 07:00 History Medicine] Methocarbamol 750 mg PO Q8HR 12/30/16 12/30/16 12/29/16 20:00 History Sumatriptan [Imitrex] 50 mg PO PRN PRN 12/30/16 12/30/16 Unknown History Trazodone HCl 50 mg PO QHS 12/30/16 12/30/16 12/29/16 20:00 History - History of Present Illness-Resp Nature of Presenting Problem: Pt is a 51 yowf who presents to ER via EMS with CC of shortness of breath. 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 Pt complains of chest tightness and dyspnea. Quality of Pain: reports: tightness Severity in ED: reports: moderate Onset/Duration: reports: 1-3 hours ago Timing: reports: still present Cough Quality/Degree: reports: mild Associated Symptoms: reports: chest pain/soreness, cough, hurts to breathe, shortness of breath, short of breath, wheezing. denies: dizziness, earache, facial pain, fever/chills, flu-like symptoms, headache, heart racing, hyperventilating, lightheadedness, muscle/bodyaches, nasal congestion, nasal drainage, sinus pain, sore throat, sweaty Similar Symptoms Previously?: Yes Recently seen or treated by another doctor?: Yes Review of Systems - Adult - REVIEW OF SYSTEMS - ADULT Constitutional: denies: chills, fever, fatique, night sweats, weight gain, weight loss Eyes: reports: no symptoms reported Ears, Nose, Mouth & Throat: reports: no symptoms reported Cardiovascular: reports: chest pain (chest tightness). denies: irregular heart rate, palpitations, poor circulation, syncope Respiratory: reports: dyspnea on exertion, shortness of breath, wheezing. denies: chronic cough, cough, excessive sputum production, hemoptysis, pleurisy Gastrointestinal: reports: no symptoms reported Genitourinary: reports: no symptoms reported Musculoskeletal: reports: no symptoms reported Integumentary: reports: no symptoms reported Neurological: reports: no symptoms reported Psychiatric: reports: no symptoms reported Endocrine: reports: no symptoms reported Hematologic/Lymphatic: reports: no symptoms reported Allergic/Immunologic: reports: no symptoms reported All Other Systems: Reviewed and Negative Past History - Adult - PAST MEDICAL HISTORY-ADULT Review of Records: reports: Nursing Assessment Review, Medications Reviewed Cardiovascular: reports: HTN, other (pulmonary edema) Respiratory: reports: asthma, COPD Gastrointestinal: reports: cancer (prior to hysterectomy) Psychiatric: reports: anxiety, other (Panic attacks) Endocrine/Immune: reports: Diabetes - PRIOR SURGERIES/PROCEDURES Surgical/Procedure History: reports: hysterectomy, - PRIOR HOSPITALIZATIONS Prior Hospitalizations: reports: none - IMMUNIZATION STATUS Childhood Immunizations: See Nurse Assessment Flu Vaccine: See Nurse Assessment - FAMILY HISTORY Family History: reviewed, not pertinent Physical Exam-General - PHYSICAL EXAM-ADULT Initial Vital Signs Reviewed: Yes - CONSTITUTIONAL General Appearance: appears well, alert, moderate distress, anxious - EYES Eyes: PERRL/EOMI, pink conjunctivae - HEAD, EARS, NOSE, MOUTH & THROAT HENMT: moist mucous membranes, pharynx normal - RESPIRATORY Respiratory: chest non-tender, no pleuratic chest pain, no accessory muscle use , decreased breath sounds (markedly diminshed air flow). negative: lungs clear , normal breath sounds, no respiratory distress, respiratory distress, accessory muscle use - CARDIOVASCULAR Cardiovascular: normal peripheral pulses, no edema, tachycardia. negative: regular rate, rhythm, bradycardia, irregularly irregular - GASTROINTESTINAL (ABDOMEN) Abdominal Exam: normal bowel sounds, non tender, soft, no organomegaly, no pulsatile mass. negative: guarding, rebound, tenderness - PSYCHIATRIC Psych/Mental Status: normal thought content, normal thought process, oriented x 3, anxious, disheveled. negative: normal mood/affect Progress - PLAN OF CARE/RESULTS Progress/Plan/Lab Results: Vital Signs - 8 hr 12/30/16 02:08 Temperature 97.5 F L Pulse Rate 120 H Respiratory Rate 24 Blood Pressure 141/97 O2 Sat by Pulse Oximetry 99 Laboratory Results - last 24 hr 12/30/16 12/30/16 12/30/16 01:50 01:50 02:10 WBC 23.74 H RBC 4.28 Hgb 12.0 Hct 37.9 MCV 88.6 MCH 28.0 MCHC 31.7 L RDW Std Deviation 13.6 Plt Count 381 MPV 8.8 Immature Gran % (Auto) 1.1 H Neut % (Auto) 58.9 Lymph % (Auto) 31.4 Emmons % (Auto) 7.0 Eos % (Auto) 1.3 Baso % (Auto) 0.3 Immature Gran # (Auto) 0.25 H Neut # (Auto) 13.99 H Lymph # (Auto) 7.46 H Emmons # (Auto) 1.67 H Eos # (Auto) 0.31 Baso # (Auto) 0.06 Segmented Neutrophils 48 Lymphocytes 44 Monocytes 6 Eosinophils 2 Specimen Type ARTERIAL Sample Site R RADIAL pH 7.21 L pCO2 88 H* pO2 207 H HCO3 28.7 H Base Excess 4.8 H Oxyhemoglobin 97.7 ABG O2 Sat (Calculated) 16.4 ABG O2 Saturation 99.6 ABG Carboxyhemoglobin 1.00 ABG Methemoglobin 0.8 Yves Test YES A-a O2 Difference 396.0 Total Hemoglobin 11.6 Lactate 0.50 Liter Flow 15.0 Blood Gas Modality NRB FiO2 % 100.0 Sodium 139 Potassium 3.8 Chloride 97 L Carbon Dioxide 31 Anion Gap 11 BUN 15 Creatinine 0.5 Estimated GFR/1.73 m2 > 60 BUN/Creatinine Ratio 30 Glucose 210 H Calculated Osmolality 285 Calcium 8.0 L Total Bilirubin 0.26 AST 30 ALT 38 H Alkaline Phosphatase 55 Total Protein 6.4 Albumin 3.9 Globulin 2.5 Albumin/Globulin Ratio 1.6 Orders Category Date Time Status CHEST-1 VIEW [RAD] Stat Exams 12/30/16 02:11 Taken ABG [RESP] Routine Lab 12/30/16 02:10 Completed BLOOD CULTURE [BLDCUL] Stat Lab 12/30/16 03:22 Uncollected CBC WITH DIFF [HEME] Stat Lab 12/30/16 01:50 Completed COMPREHENSIVE METABOLIC PANEL [CHEM] Stat Lab 12/30/16 01:50 Completed LACTATE, PLASMA [CHEM] Stat Lab 12/30/16 03:21 Uncollected 0.9% Sodium Chloride Inj [Ns] 1,000 ml Med 12/30/16 03:19 Discontinued .ROUTE As Directed Albuterol 2.5MG/Ipratrop 0.5MG [Duoneb (A & A)] Med 12/30/16 02:13 Discontinued 3 ml INH NOW ONE Albuterol [Albuterol Neb] Med 12/30/16 02:13 Discontinued 5 mg INH NOW ONE Budesonide [Pulmicort] Med 12/30/16 02:13 Discontinued 0.5 mg INH NOW ONE Methylprednisolone Sod Succ [Solu-Medrol] Med 12/30/16 02:13 Discontinued 125 mg IV NOW ONE Zosyn 3.375 gm/Ns IV Now Med 12/30/16 03:23 Ordered Piperacil/Tazobact 3.375 gm/Ns [Zosyn 3.375 gm/Ns] 50 ml IV NOW Aerosol Treatments Routine Oth 12/30/16 02:14 Completed Aerosol Treatments Stat Oth 12/30/16 02:14 Completed BIPAP Stat Oth 12/30/16 02:16 Active EKG [EKG] Stat Ther 12/30/16 01:52 Ordered Result Diagrams: 12/30/16 01:50 12/30/16 01:50 - EKG 1 Time of EKG reading by physician:: 03:10 EKG Read and Signed by:: Dev Nath EKG Interpretation (*Must complete 3 of following elements*): Abnormal Rate: 123 Rhythm: S Tach [place]: normal QRS: normal ST Wave: normal - XRAY 1 XRAY: Bilateral XRAY Study: Chest Impression: See EMR Report XRAY Interpretation: COPD, no infiltrates - Dr. Nath - CONSULTS/PCP/HOSPITALIST Notification #1 *Consult/PCP/Hospitalist*: Aayush Time Discussed: 03:24 (Will write all orders) Consult Disposition: Will see in ED, Admit Departure - Departure Date of Disposition Decision: 12/30/16 Time of Disposition Decision: 03:25 DIAGNOSIS: COPD exacerbation Respiratory failure Qualifiers: Chronicity: acute on chronic Respiratory failure complication: hypercapnia Qualified Code(s): J96.22 - Acute and chronic respiratory failure with hypercapnia Leukocytosis Qualifiers: Leukocytosis type: unspecified Qualified Code(s): D72.829 - Elevated white blood cell count, unspecified Disposition: ADMITTED INPATIENT 09 Certified Medical Emergency: Emergent Condition: Fair Referrals and Follow-Ups: None,PCP [Clinical Support] - - Critical Care Note This patient required my direct & personal management of CC.: No This chart was documented by the indicated scribe, (Moy Levin Scribe) and accurately reflects the services I performed and decisions made by me, Dev Nath MD, as attested by the provider's signature.
[2016-12-30] MEDS ORDERED: ZOFRAN IV PRN (06:26)
[2016-12-30] MEDS ORDERED: VENTOLIN HFA INH PRN (06:26)
--- NOTE | 2016-12-30 06:27 | HISTORY AND PHYSICAL ---
PRIMARY CARE PROVIDER: ELIZABETH Cobos. LAWN SERVICE WORKER: Dr. Ambrocio. CHIEF COMPLAINT: Shortness of breath. HISTORY OF PRESENT ILLNESS: Ms. Márquez is a 51-year-old female who was last admitted on 12/23/2016 and discharged on 12/26/2016 for a COPD exacerbation. She returns with identical complaints. A chest x-ray was obtained in the emergency room which showed chronic COPD changes but no infiltrate. She was tachypneic and tachycardic on arrival but afebrile. An ABG was obtained. She was found to be hypercapnic and she was placed on BiPAP. She will be admitted for further evaluation and treatment. REVIEW OF SYSTEMS: Fourteen point review of systems conducted with the patient. She had a complaint of shortness of breath. She had right upper quadrant pain. Denied diarrhea, nausea, vomiting, chest pain. She has had cough with yellow sputum. Denies fever, chills, body aches. Other pertinent positives for admission are listed above in the HPI. All other systems were reviewed and found to be negative. PAST MEDICAL HISTORY: 1. COPD. 2. Hypertension. 3. Hyperlipidemia. 4. GERD. 5. Irritable bowel syndrome. 6. Diverticulitis. PREVIOUS SURGICAL HISTORY: 1. . 2. Hysterectomy secondary to patient reported precancerous cells. SOCIAL HISTORY: Lives in [place] with her family. Quit smoking about a year and half ago. Has a history of smoking 1 pack to 1-1/2 packs for roughly 15 years. Denies alcohol or illicit drug use or abuse. FAMILY HISTORY: Mother had glaucoma and GERD. ALLERGIES: Levaquin, Levsin, Cipro, erythromycin, and Zithromax. HOME MEDICATIONS: 1. Lorazepam 0.5 mg p.o. b.i.d. 2. Vitamin B12 1000 mcg p.o. daily. 3. Vitamin D 3000 units p.o. daily. 4. Mucinex 600 mg p.o. b.i.d. 5. Daliresp 500 mcg p.o. daily. 6. Zofran ODT 4 mg p.o. p.r.n. 7. Trazodone 50 mg p.o. at bedtime. 8. Symbicort 160/4.5 mcg inhaler 1 puff b.i.d. 9. Prednisone 20 mg p.o. daily. 10. Protonix 40 mg p.o. daily. 11. Culturelle 1 capsule p.o. b.i.d. 12. Advair 500/50 Diskus 1 capsule b.i.d. 13. Celexa 10 mg p.o. daily. 14. Ventolin HFA 2 puffs inhalation q.4 hours p.r.n. 15. DuoNeb inhaled q.4 hours. 16. Lipitor 10 mg p.o. daily. PHYSICAL EXAMINATION: VITAL SIGNS: Temperature 97.5 degrees, pulse 120, respirations 24, blood pressure 141/97, oxygen saturation 99% on BiPAP. GENERAL: A pleasant, 51-year-old male well known to our service on BiPAP, on the ER stretcher, in no acute distress at this time. Answers all questions appropriately. He complains of a dry mouth. HEENT: Head is atraumatic, normocephalic. Pupils equal, round, reactive to light. Extraocular eye movement intact. Sclerae are anicteric. Conjunctivae are pink. Oral mucosa is dry. NECK: Supple. Trachea is midline. CARDIAC: S1-S2 appreciated. Sinus tachycardia on monitor. No murmurs, gallops, or rubs. LUNGS: Decreased bilaterally. Prolonged expiratory phase. Expiratory wheezing throughout the lung brown. No rhonchi, no rales. Symmetrical rise and fall with respirations. ABDOMEN: Soft, nondistended. Tenderness in right upper quadrant on palpation. No rebound tenderness. Bowel sounds noted in all 4 quadrants, normoactive. EXTREMITIES: No clubbing, cyanosis, or edema. There are 2+ pedal pulses. NEUROLOGICAL: Alert and oriented x3. Cranial nerves 2-12 grossly intact. DIAGNOSTIC DATA: Chest x-ray shows hyperinflated lungs related to chronic COPD changes. No infiltrate. LABORATORY DATA: WBC 23.74, hemoglobin 12, hematocrit 37.9, platelet count 381,000. ABG: PH 7.21, pCO2 88, PO2 207, bicarb 28.7. This was on 100% nonrebreather. Sodium 139, potassium 3.8, chloride 97, carbon dioxide 31, BUN 15, creatinine 0.5, glucose 210. AST 30, ALT 38. ASSESSMENT AND PLAN: 1. Chronic obstructive pulmonary disease with exacerbation. The patient, as noted before, has stopped smoking. We will continue all of her normal medications and nebulizer treatments. We will start Solu-Medrol 80 mg intravenous every 8 hours. Hold her prednisone at this time. Continue BiPAP at this time. 2. Acute respiratory failure with respiratory acidosis. Patient is on BiPAP. Please see #1 for full plan. 3. Hyperlipidemia. Continue statin. 4. Hypertension. Monitor blood pressure. We will give as needed medications as needed. Does not appear that she takes any home medications for this. 5. Anxiety. Continue patient's Ativan. 6. Gastroesophageal reflux disease. Protonix 40 daily. 7. Leukocytosis. This is possibly related to increase in patient's steroids. However, she did not have an elevated white blood cell count on previous admission. Related to her multiple drug allergies, we will start doxycycline 100 mg intravenous twice a day. Blood cultures have been ordered. 8. Further recommendations per patient's clinical course. Dictated by ELIZABETH Starks for William Looney MD cc: ELIZABETH Starks MD Anna M. Dumas, CRNP
--- NOTE | 2016-12-30 06:41 | Diag Imaging Result Doc PS360 ---
EXAM: CHEST-1 VIEW HISTORY: SOB TECHNIQUE: Portable AP COMPARISON: 01/18/2017 FINDINGS: The lungs are hyperexpanded. Small amount of scarring is found right apex. Heart is not enlarged. Slight vascular distention. No pleural effusions identified. No consolidation. IMPRESSION: 1.Development of minimal pulmonary edema 2.Likely scarring in the right apex 3.Emphysema. Electronically signed by Cory Millard 12/30/2016 6:39 AM
[2016-12-30] MEDS: SOLU-MEDROL IV SCH ×4 (07:33→23:01)
[2016-12-30] MEDS: LOVENOX SUBQ SCH (07:33)
[2016-12-30] MEDS: DOXYCYCLINE 100 MG in NS 250 ML IV SCH ×2 (07:33→17:26)
[2016-12-30] MEDS: BENTYL PO SCH ×3 (07:33→15:30)
[2016-12-30] MEDS: PROTONIX PO SCH (07:33)
[2016-12-30] MEDS: SYMBICORT 160/4.5 MICROGM INHALER INH SCH ×2 (08:42→20:12)
[2016-12-30] MEDS: ADVAIR 500/50 DISKUS INH SCH ×2 (08:44→20:12)
[2016-12-30] MEDS: IMODIUM PO SCH ×2 (09:09→20:53)
[2016-12-30] MEDS: VITAMIN B-12 PO SCH (09:09)
[2016-12-30] MEDS: VITAMIN D PO SCH (09:09)
[2016-12-30] MEDS: BENADRYL PO SCH (09:09)
[2016-12-30] MEDS: MUCINEX PO SCH ×2 (09:09→20:53)
[2016-12-30] MEDS: LIPITOR PO SCH (09:09)
[2016-12-30] MEDS: TESSALON PO SCH ×3 (09:09→17:23)
[2016-12-30] MEDS: CULTURELLE PO SCH ×2 (09:09→20:53)
[2016-12-30] MEDS: DALIRESP PO SCH (09:09)
[2016-12-30] MEDS: CELEXA PO SCH (09:09)
[2016-12-30] MEDS: TYLENOL PO PRN ×2 (09:09→17:23)
[2016-12-30] MEDS: ATIVAN PO SCH ×2 (09:09→20:53)
--- NOTE | 2016-12-30 11:48 | Diag Imaging Result Doc PS360 ---
EXAM: US ABDOMEN-COMPLETE HISTORY: ruq pain TECHNIQUE: COMPARISON: A CT from 11/24/2016 FINDINGS: Normal pancreas and inferior vena cava. No aneurysmal dilatation to the abdominal aorta. No focal hepatic abnormality. The gallbladder is contracted. No stones. Common bile duct measures 3 mm. Normal right kidney. No hydronephrosis. Spleen is not enlarged. No ascites. Normal left kidney. No hydronephrosis. IMPRESSION: Normal abdominal ultrasound. Electronically signed by Cory Millard 12/30/2016 11:46 AM
[2016-12-30] MEDS ORDERED: DUONEB (A & A) INH PRN (15:33)
[2016-12-30] MEDS: DUONEB (A & A) INH SCH ×3 (15:56→22:44)
[2016-12-30] MEDS: DESYREL PO SCH (20:53)
[2016-12-31] MEDS: DUONEB (A & A) INH SCH ×6 (03:54→22:46)
[2016-12-31 04:28] LABS: ALLEN TEST YES; BE 14.9 mmoll (-3.0-3.0); BLOOD TYPE ARTERIAL; DRAW SITE R BRACHIAL; METHB 1.3 % (0.0-1.5); O2(CT) 17.1 mL/dL (15.0-23.0); PO2(98.6) 130 mmHg (60-100); SAMPLE BLOOD; SAO2 99.1 % (95.0-100.0); THB 12.4 g/dL (11.5-17.4); pH(98.6) 7.46 (7.35-7.45)
[2016-12-31 04:33] LABS: MODALITY CANNULA; PCO2(98.6) 58 mmHg (35-45)
[2016-12-31 05:24] LABS: BASO% 0.1 % (0.0-0.8); EOS# 0.05 X1000 (0.0-0.7); EOS% 0.3 % (0.0-10.0); HEMATOCRIT 39.1 % (37.0-47.0); HEMOGLOBIN 12.7 g/dL (12.0-16.0); IMM GRAN# 0.06 X1000 (0.0-0.04); IMM GRAN% 0.4 % (0.0-0.5); LYMPH# 0.89 X1000 (1.2-3.4); LYMPH% 6.1 % (20.5-51.1); MANUAL DIFF NEEDED? YES; MCH 28.2 PG (27-31); MCHC 32.5 g/dL (33-37); MCV 86.7 FL (81-99); MONO# 0.71 X1000 (0.11-0.59); MONO% 4.9 % (1.7-9.3); MPV 8.6 FL (7.4-10.4); NEUT% 88.2 % (42.2-75.2); PLT 282 X1000 (130-400); RBC 4.51 XMIL (4.2-5.4)
[2016-12-31 05:45] LABS: AGAP 10; BUN 18 mg/dL (8-22); CALCIUM 9.7 mg/dL (8.8-10.2); CHLORIDE 95 mmol/L (98-107); COSMO 284; POTASSIUM 4.4 mmol/L (3.5-5.1); SODIUM 140 mmol/L (136-145); TCO2 35 mmol/L (25-35)
[2016-12-31 06:00] LABS: LYMPHS 10 % (21-51); MONO 2 % (1-9)
[2016-12-31] MEDS: DOXYCYCLINE 100 MG in NS 250 ML IV SCH ×2 (06:26→18:33)
[2016-12-31] MEDS: SOLU-MEDROL IV SCH ×2 (06:26→13:57)
[2016-12-31] MEDS: PROTONIX PO SCH (06:27)
[2016-12-31] MEDS: TYLENOL PO PRN (06:27)
[2016-12-31] MEDS: BENTYL PO SCH ×3 (06:27→16:58)
--- NOTE | 2016-12-31 07:03 | EKG Report ---
Test Performed on : 12/30/2016 01:46:19 AM Test Reason : re-ordered Blood Pressure : / mmHG Vent. Rate : 123 BPM Atrial Rate : 123 BPM P-R Int : 138 ms QRS Dur : 076 ms QT Int : 320 ms P-R-T Axes : 076 081 068 degrees QTc Int : 458 ms Sinus tachycardia. Otherwise normal ECG When compared with ECG of 22-DEC-2016 03:52, No significant change was found Unconfirmed Result
[2016-12-31] MEDS ORDERED: LASIX IV ONE (08:00)
[2016-12-31] MEDS: CULTURELLE PO SCH ×2 (08:23→20:13)
--- NOTE | 2016-12-31 08:23 | Diag Imaging Result Doc PS360 ---
EXAM: CHEST-PORTABLE HISTORY: pulmonary edema TECHNIQUE: Portable upright AP COMPARISON: 12/30/2016 FINDINGS: The lungs are well expanded. The heart is not enlarged. The vessels are not distended. No pneumonia. There is scarring in the right apex. No pleural effusions identified. There are several old left rib fractures. IMPRESSION: No pulmonary edema. Electronically signed by Cory Millard 12/31/2016 8:21 AM
[2016-12-31] MEDS: LIPITOR PO SCH (08:24)
[2016-12-31] MEDS: TESSALON PO SCH ×3 (08:24→16:58)
[2016-12-31] MEDS: CELEXA PO SCH (08:25)
[2016-12-31] MEDS: VITAMIN B-12 PO SCH (08:25)
[2016-12-31] MEDS: ATIVAN PO SCH ×2 (08:26→20:13)
[2016-12-31] MEDS: DALIRESP PO SCH (08:26)
[2016-12-31] MEDS: MUCINEX PO SCH ×2 (08:27→20:13)
[2016-12-31] MEDS: BENADRYL PO SCH (08:27)
[2016-12-31] MEDS: VITAMIN D PO SCH (08:27)
[2016-12-31] MEDS: LOVENOX SUBQ SCH (08:28)
[2016-12-31] MEDS: IMODIUM PO SCH ×2 (08:35→20:13)
[2016-12-31] MEDS: MORPHINE IV PRN ×2 (11:21→20:44)
--- NOTE | 2016-12-31 16:57 | PROGRESS NOTE ---
DATE: 12/31/2016 SUBJECTIVE: The patient is sitting up in bed. She states that her shortness of breath has improved. She slept with her CPAP machine last night. OBJECTIVE: Vital Signs: Temperature 98.5 degrees, blood pressure 110/65, heart rate 97, respirations 20, O2 saturations 99% on 4 L nasal cannula. General: This is a chronically ill- appearing, elderly female lying in bed in no acute distress. Head: Normocephalic, atraumatic. Heart: S1, S2. Normal. Tachycardic. Lungs: Equal air entry bilaterally. Diminished breath sounds at the bases. Abdomen: Positive bowel sounds. Soft, nontender, nondistended. Extremities: No edema. No cyanosis. No calf tenderness. Neurologic: The patient is alert and oriented x3. LABS: White blood cell count 14.5, hemoglobin 12, hematocrit 39, platelets 282,000. ABG with pH of 7.46, pCO2 58, PO2 130, bicarb 36. Sodium 140, potassium 4.4, chloride 95, CO2 35, BUN 18, creatinine 0.6, glucose 139, calcium 9.7. ProBNP 1652. ASSESSMENT AND PLAN: 1. Acute on chronic hypercapnic respiratory failure secondary to chronic obstructive pulmonary disease exacerbation. The patient appears to be improving slowly. Will continue on IV steroids, bronchodilator therapy and IV antibiotics. 2. Pulmonary edema. Resolved. 3. Dyslipidemia. Continue on Lipitor. 4. Situational depression. Continue on Celexa. 5. Deep vein thrombosis prophylaxis. Continue on Lovenox. 6. Will consult physical therapy. cc: Miriam Rader MD
[2016-12-31] MEDS: SYMBICORT 160/4.5 MICROGM INHALER INH SCH (19:25)
[2016-12-31] MEDS: ADVAIR 500/50 DISKUS INH SCH ×2 (19:26→22:45)
[2016-12-31] MEDS: DESYREL PO SCH (20:13)
[2017-01-01] MEDS ORDERED: SOLU-MEDROL IV SCH (01:00)
[2017-01-01] MEDS: DUONEB (A & A) INH SCH ×6 (02:48→22:45)
[2017-01-01 04:55] LABS: ALLEN TEST YES; BE 14.3 mmoll (-3.0-3.0); BLOOD TYPE ARTERIAL; DRAW SITE R RADIAL; METHB 1.1 % (0.0-1.5); O2(CT) 16.7 mL/dL (15.0-23.0); PO2(98.6) 162 mmHg (60-100); SAMPLE BLOOD; SAO2 99.2 % (95.0-100.0); pH(98.6) 7.46 (7.35-7.45)
[2017-01-01 04:57] LABS: MODALITY BI PAP
[2017-01-01 04:58] LABS: PCO2(98.6) 57 mmHg (35-45)
[2017-01-01 05:07] LABS: HEMATOCRIT 37.5 % (37.0-47.0); HEMOGLOBIN 12.1 g/dL (12.0-16.0); MCH 28.3 PG (27-31); MCHC 32.3 g/dL (33-37); MCV 87.6 FL (81-99); MPV 8.5 FL (7.4-10.4); RBC 4.28 XMIL (4.2-5.4)
[2017-01-01 05:44] LABS: AGAP 10; BUN 23 mg/dL (8-22); CALCIUM 9.1 mg/dL (8.8-10.2); CHLORIDE 94 mmol/L (98-107); COSMO 284; SODIUM 140 mmol/L (136-145); TCO2 36 mmol/L (25-35)
[2017-01-01] MEDS: BENTYL PO SCH ×4 (05:47→17:03)
[2017-01-01] MEDS: PROTONIX PO SCH ×2 (05:48→06:36)
[2017-01-01] MEDS: DOXYCYCLINE 100 MG in NS 250 ML IV SCH ×2 (05:48→18:19)
[2017-01-01] MEDS: SYMBICORT 160/4.5 MICROGM INHALER INH SCH ×3 (07:21→20:57)
[2017-01-01] MEDS: ADVAIR 500/50 DISKUS INH SCH ×2 (07:22→19:20)
--- NOTE | 2017-01-01 07:50 | Diag Imaging Result Doc PS360 ---
EXAM: CHEST-PORTABLE INDICATION: pulmonary edema TECHNIQUE: One view COMPARISON: 12/31/2016 FINDINGS: The lungs are grossly clear. There are no new consolidations. The cardiac silhouette is stable. IMPRESSION: Stable chest with no definite acute pathology. Electronically signed by Arnold Claros 01/01/2017 7:47 AM
[2017-01-01] MEDS: LIPITOR PO SCH (08:05)
[2017-01-01] MEDS: VITAMIN B-12 PO SCH (08:05)
[2017-01-01] MEDS: MUCINEX PO SCH ×2 (08:05→20:58)
[2017-01-01] MEDS: TESSALON PO SCH ×3 (08:06→17:03)
[2017-01-01] MEDS: CELEXA PO SCH (08:07)
[2017-01-01] MEDS: VITAMIN D PO SCH (08:07)
[2017-01-01] MEDS: BENADRYL PO SCH (08:08)
[2017-01-01] MEDS: DALIRESP PO SCH (08:08)
[2017-01-01] MEDS: ATIVAN PO SCH ×2 (08:08→20:58)
[2017-01-01] MEDS: CULTURELLE PO SCH ×2 (08:09→20:58)
[2017-01-01] MEDS: LOVENOX SUBQ SCH (08:09)
[2017-01-01] MEDS: IMODIUM PO SCH ×2 (08:11→20:58)
--- NOTE | 2017-01-01 11:15 | PROGRESS NOTE ---
DATE: 01/01/2017 SUBJECTIVE: When I evaluated this patient she was working with physical therapy. At rest, she has no complaints of shortness of breath, but with physical activity, she is complaining of shortness of breath. She feels better though. She sleeps with her CPAP machine during the night. OBJECTIVE: Vital Signs: Temperature 96.9, pulse 74, respiratory rate 12, blood pressure 130/74, oxygen saturation 100% on 4 L of nasal cannula. HEENT: Head normocephalic. No trauma. PERRLA. Neck: Supple. No JVD. No masses. Central trachea. Chest: Decreased breath sounds globally with prolonged expiratory phase. Mild wheezes at the level of the upper lobes, but compared with admission is much better. Cardiovascular: RRR. No murmurs. Extremities: No edema. No clubbing. No cyanosis. Neurological: The patient is alert and oriented x3. No focal deficits. LABORATORY: WBC 17.3, hemoglobin 12.1, hematocrit 37.5, platelets 259. Sodium 140, potassium 4, chloride 94, bicarbonate 36, BUN 23, creatinine 0.6, glucose 119, calcium 9.1. ASSESSMENT AND PLAN: 1. Acute on chronic hypercapnic respiratory failure secondary to chronic obstructive pulmonary disease exacerbation. This patient appears to be improving. She was working with physical therapy when I evaluated this patient. She was doing fine. She gets tired with physical activity. When she is at rest, she is not complaining of shortness of breath. 2. Pulmonary edema resolved. 3. Dyslipidemia. Continue on Lipitor. 4. Situational depression. Continue with Celexa. 5. Deep vein thrombosis prophylaxis. Continue with Lovenox. 6. Physical deconditioning. Physical therapy is on board. This patient looks stable. She is completely alert and oriented x3. She is not in respiratory distress at this moment, but she gets tired with physical activity. Physical therapy is on board. I will transfer this patient to the medical floor. cc: Rangel Perez MD
[2017-01-01] MEDS: SOLU-MEDROL IV SCH (12:57)
--- NOTE | 2017-01-01 12:58 | ECHO REPORT ---
ORDER DATE: 12/31/2016 MEASUREMENTS: There are no measurements. SUMMARY OF 2-DIMENSIONAL IMAGIN. Very difficult study for interpretation due to limited acoustic window quality. There were no parasternal windows available. 2. Aortic, mitral, and tricuspid valves are without gross structural abnormality. Pulmonic valve is not well demonstrated. There is trace tricuspid regurgitation. Aortic root is grossly normal in size. 3. Normal left ventricular dimensions suggested. Estimated left ventricular ejection fraction appears to be least 55%. No obvious wall motion abnormality can be appreciated. Left atrium, right atrium, and right ventricle are normal in size with grossly preserved right ventricular systolic function. 4. No pericardial effusion. 5. Appearance of inferior vena cava suggests normal central venous pressure. CONCLUSIONS: 1. Very difficult study for interpretation. 2. No significant valvular abnormality appreciated. 3. Normal left ventricular ejection fraction. cc: MD Miriam Virgen MD
[2017-01-01 14:10] LABS: INR 1.01; PROTIME 10.6 Seconds (9.2-11.7)
[2017-01-01] MEDS ORDERED: NS 250 ML ONE (14:29)
[2017-01-01] MEDS: MORPHINE IV PRN (16:13)
[2017-01-01] MEDS: DESYREL PO SCH (20:58)
[2017-01-02] MEDS: SOLU-MEDROL IV SCH ×2 (00:42→13:29)
[2017-01-02] MEDS: DUONEB (A & A) INH SCH ×6 (03:20→23:02)
[2017-01-02 05:32] LABS: ALLEN TEST YES; BE 13.3 mmoll (-3.0-3.0); BLOOD TYPE ARTERIAL; DRAW SITE R RADIAL; METHB 0.7 % (0.0-1.5); O2(CT) 16.2 mL/dL (15.0-23.0); PO2(98.6) 153 mmHg (60-100); SAMPLE BLOOD; SAO2 99.8 % (95.0-100.0); THB 11.6 g/dL (11.5-17.4); pH(98.6) 7.42 (7.35-7.45)
[2017-01-02 05:33] LABS: PCO2(98.6) 62 mmHg (35-45)
[2017-01-02 05:34] LABS: MODALITY BI PAP
[2017-01-02 05:36] LABS: AGAP 6; BUN 24 mg/dL (8-22); CALCIUM 9.3 mg/dL (8.8-10.2); CHLORIDE 95 mmol/L (98-107); COSMO 283; POTASSIUM 4.4 mmol/L (3.5-5.1); SODIUM 138 mmol/L (136-145); TCO2 37 mmol/L (25-35)
[2017-01-02 05:52] LABS: BASO% 0.1 % (0.0-0.8); HEMOGLOBIN 11.3 g/dL (12.0-16.0); IMM GRAN# 0.06 X1000 (0.0-0.04); IMM GRAN% 0.5 % (0.0-0.5); LYMPH# 0.55 X1000 (1.2-3.4); LYMPH% 4.9 % (20.5-51.1); MANUAL DIFF NEEDED? YES; MCH 27.4 PG (27-31); MCHC 31.4 g/dL (33-37); MCV 87.4 FL (81-99); MONO# 0.32 X1000 (0.11-0.59); MONO% 2.9 % (1.7-9.3); MPV 8.8 FL (7.4-10.4); NEUT% 91.6 % (42.2-75.2); PLT 256 X1000 (130-400); RBC 4.12 XMIL (4.2-5.4)
[2017-01-02] MEDS: DOXYCYCLINE 100 MG in NS 250 ML IV SCH ×2 (06:02→18:02)
[2017-01-02] MEDS: PROTONIX PO SCH (06:02)
[2017-01-02] MEDS: BENTYL PO SCH ×3 (06:02→17:42)
[2017-01-02] MEDS: SYMBICORT 160/4.5 MICROGM INHALER INH SCH ×2 (07:19→19:39)
[2017-01-02] MEDS: ADVAIR 500/50 DISKUS INH SCH ×2 (07:20→19:20)
[2017-01-02 07:22] LABS: BANDS 1 % (0-1); LYMPHS 6 % (21-51)
[2017-01-02] MEDS: ATIVAN PO SCH ×2 (08:18→20:07)
[2017-01-02] MEDS: CELEXA PO SCH (08:18)
[2017-01-02] MEDS: BENADRYL PO SCH (08:18)
[2017-01-02] MEDS: VITAMIN B-12 PO SCH (08:18)
[2017-01-02] MEDS: TESSALON PO SCH ×3 (08:18→17:41)
[2017-01-02] MEDS: LOVENOX SUBQ SCH (08:19)
[2017-01-02] MEDS: CULTURELLE PO SCH ×2 (08:19→20:07)
[2017-01-02] MEDS: VITAMIN D PO SCH (08:19)
[2017-01-02] MEDS: DALIRESP PO SCH (08:19)
[2017-01-02] MEDS: LIPITOR PO SCH (08:19)
[2017-01-02] MEDS: MUCINEX PO SCH ×2 (08:19→20:07)
[2017-01-02] MEDS: MORPHINE IV PRN (10:20)
[2017-01-02] MEDS: IMODIUM PO SCH ×2 (10:23→20:07)
--- NOTE | 2017-01-02 16:40 | PROGRESS NOTE ---
DATE: 01/02/2017 SUBJECTIVE: This patient looks better today. She uses oxygen at home and she is planning to continue with that. As per the patient, she stopped smoking 1 and a half years ago. Also she sleeps with her BiPAP machine during the night. OBJECTIVE: Vital Signs: Temperature 98 degrees, pulse 97, respiratory rate 18, blood pressure 145/85, oxygen saturation 100% on 4 L of nasal cannula. HEENT: Head normocephalic. No trauma. PERRLA. Neck: Supple. No JVD. No masses. Central trachea. Chest: Decreased breath sounds globally with prolonged expiratory phase. Mild wheezes at the level of the upper lobes but compared with admission and yesterday she is better. Cardiovascular: RRR. No murmurs. Extremities: No edema. No clubbing. No cyanosis. Neurological: The patient is alert and oriented x3. No focal deficits. LABORATORY: WBC 11.2, hemoglobin 11.3, hematocrit 36, platelets 256,000. Sodium 138, potassium 4.4, chloride 95, bicarbonate 37, BUN 24, creatinine 0.6, glucose 157, calcium 9.3. ASSESSMENT AND PLAN: 1. Acute on chronic hypercapnic respiratory failure secondary to chronic obstructive pulmonary disease exacerbation. This patient appears to be improving. Physical therapy is on board. She is doing better. She is still using oxygen and she should be using oxygen at home and BiPAP machine during the night. My plan is to discharge this patient tomorrow if everything is okay. Today I will switch the dose of steroids from IV to p.o. and I will continue with her doxycycline. 2. Pulmonary edema. Resolved. 3. Dyslipidemia. Continue with Lipitor. 4. Situational depression. Continue with Celexa. 5. Deep vein thrombosis prophylaxis. Continue with Lovenox. 6. Physical deconditioning. This patient is on physical therapy. cc: Rangel Perez MD
[2017-01-02] MEDS ORDERED: DUONEB (A & A) ONE (19:09)
[2017-01-02] MEDS: DESYREL PO SCH (20:07)
[2017-01-03] MEDS: SOLU-MEDROL IV SCH (00:52)
[2017-01-03] MEDS: DUONEB (A & A) INH SCH ×4 (03:20→15:31)
[2017-01-03] MEDS: DOXYCYCLINE 100 MG in NS 250 ML IV SCH (05:39)
[2017-01-03] MEDS: BENTYL PO SCH ×2 (06:05→11:52)
[2017-01-03] MEDS: PROTONIX PO SCH (06:05)
[2017-01-03 07:37] LABS: AGAP 9; BUN 21 mg/dL (8-22); CALCIUM 8.4 mg/dL (8.8-10.2); CHLORIDE 97 mmol/L (98-107); COSMO 285; POTASSIUM 4.4 mmol/L (3.5-5.1); SODIUM 141 mmol/L (136-145); TCO2 35 mmol/L (25-35)
[2017-01-03 07:47] VITALS: BP 138/85
[2017-01-03] MEDS: VITAMIN D PO SCH (08:01)
[2017-01-03] MEDS: VITAMIN B-12 PO SCH (08:01)
[2017-01-03] MEDS: DALIRESP PO SCH (08:01)
[2017-01-03] MEDS: LIPITOR PO SCH (08:01)
[2017-01-03] MEDS: IMODIUM PO SCH (08:01)
[2017-01-03] MEDS: CELEXA PO SCH (08:02)
[2017-01-03] MEDS: MUCINEX PO SCH (08:02)
[2017-01-03] MEDS: TESSALON PO SCH ×2 (08:02→13:01)
[2017-01-03] MEDS: LOVENOX SUBQ SCH (08:03)
[2017-01-03] MEDS: BENADRYL PO SCH (08:03)
[2017-01-03] MEDS: CULTURELLE PO SCH (08:03)
[2017-01-03] MEDS: ATIVAN PO SCH (08:06)
[2017-01-03] MEDS: SYMBICORT 160/4.5 MICROGM INHALER INH SCH (08:15)
[2017-01-03] MEDS: MORPHINE IV PRN (09:49)
[2017-01-03] MEDS: ADVAIR 500/50 DISKUS INH SCH (11:37)
--- NOTE | 2017-01-03 15:45 | DISCHARGE SUMMARY ---
ADMISSION DATE: 12/30/2016 DISCHARGE DATE: 01/03/2017 ADMISSION DIAGNOSES: 1. Chronic obstructive pulmonary disease exacerbation. 2. Acute hypercarbic respiratory failure. 3. Leukocytosis. 4. Hypertension. 5. Hyperlipidemia. 6. Anxiety. 7. Gastroesophageal reflux disease. DISCHARGE DIAGNOSES: 1. Chronic obstructive pulmonary disease exacerbation. 2. Acute hypercarbic respiratory failure. 3. Leukocytosis. 4. Hypertension. 5. Hyperlipidemia. 6. Anxiety. 7. Gastroesophageal reflux disease. DIAGNOSTIC PROCEDURES AND FINDINGS: EKG done on 12/30/2016 shows sinus tachycardia without acute ST or T-wave abnormalities. Chest x-ray done on 12/30/2016 shows development of minimal pulmonary edema, likely scarring in the right upper apex and emphysema. Abdominal ultrasound done on 12/30/2016 is negative for acute process. Chest x-ray done on 12/31/2016 shows no pulmonary edema, scarring in the right apex, several old left-sided rib fractures. Echo done on 12/31/2016 was a difficult study for interpretation. No significant valvular abnormality. Normal LVEF. Chest x-ray done on 01/01/2017 shows stable chest, nothing new. HOSPITAL COURSE: Ms. Márquez is a 51-year-old female who came to the ER with continued complaints of shortness of breath. She came in and was tachypneic and tachycardic. In the ER, she was found to be hypercapnic and was placed on BiPAP, and was admitted to our service for COPD exacerbation. She has been admitted multiple times this month already for the same. She was admitted to the floor and we started doxycycline, and continued BiPAP, IV fluids, and steroids. We did check an echo, which was negative, although interpretation was difficult. With continued oxygen, nebulizers, steroids, and antibiotics, she improved and BiPAP was removed. Today, she is feeling much better and is stable for discharge. DISCHARGE MEDICATIONS: Tylenol as needed every 6 hours. Albuterol ipratropium 3 mL inhaled every 4 hours. Ventolin HFA 2 puffs inhaled every 6 hours. Lipitor 10 mg daily. Tessalon Perles 200 mg t.i.d. Budesonide/formoterol inhaler 1 puff b.i.d. Vitamin D3, 1000 units p.o. daily. Celexa 10 mg daily. Vitamin B12, 1000 mcg p.o. daily. Bentyl 10 mg p.o. t.i.d. Benadryl 25 mg daily. Doxycycline 100 mg p.o. b.i.d. Fluticasone/salmeterol inhaler as directed. Mucinex 600 mg b.i.d. Lactobacillus 1 b.i.d. Ativan 0.5 mg b.i.d. Methocarbamol 750 mg p.o. every 8 hours. Zofran 4 mg every 4-6 hours as needed for nausea and vomiting. Protonix 40 mg daily. Prednisone taper as directed. Daliresp 500 mcg daily. Imitrex 50 mg p.o. as needed. Trazodone 50 mg p.o. as needed for sleep. DISCHARGE LABORATORIES DONE YESTERDAY: WBC 11.2, hemoglobin 11.3, hematocrit 36, platelet count 256,000. Sodium 141, potassium 4.4, chloride 97, CO2 of 35, anion gap 9, BUN 21, creatinine 0.6, glucose 116, calcium 8.4. DISCHARGE PHYSICAL EXAMINATION: General: A 51-year-old female lying in hospital bed in no acute distress. Neurologic: Awake, alert, and oriented. No focal deficits. HEENT: Head is atraumatic and normocephalic. Pupils equal, round, and reactive to light. Neck: Supple. Trachea is midline. No JVD. Chest: Diminished bilaterally with prolonged expiratory phase. There are some mild wheezes in the expiratory phase, as well. Cardiovascular: Regular rate and rhythm. S1 and S2 noted. No murmurs. Gastrointestinal: Soft, nondistended, nontender. Bowel sounds positive. Extremities: Without edema, clubbing, or cyanosis. Pulses palpable bilaterally. DISCHARGE DIET: Heart healthy, low-carbohydrate. DISCHARGE ACTIVITY: Resume activity as tolerated. DISPOSITION AND OTHER DISCHARGE INSTRUCTIONS: The patient has been discharged home with home health. She is to follow up with ELIZABETH Cobos, her primary care, and Dr. Ambrocio, her operator, as directed. She is to continue all medications as directed and return to the ER or call 911 for worsening complaints or concerns. All questions have been answered. DISCHARGE TIME: Greater than 35 minutes. Dictated by ELIZABETH Nava for Rangel Perez MD cc: Sabino J. ELIZABETH Conner MD Anna M. Dumas, CRNP Mamoun I. Najjar, MD
[2017-01-03] MEDS ORDERED: DOXYCYCLINE PO SCH (21:00)
[2017-01-04] MEDS ORDERED: PREDNISONE PO SCH (09:00)
== END 2017-01-03 15:45 | disposition home health service (06) ==
LOC: ED 01:43 → 3S 05:19 → SUATTDRO 05:19 → 3N 01-02 15:59
PROVIDERS: ATTEND Internal Medicine